=== PATIENT | female | born 1950 | race Caucasian/White ===

== ENCOUNTER 2018-01-26 19:24 | Inpatient (IN) | payer MEDICARE, BC ==
[2018-01-26] MEDS: IV NORMAL SALINE 1000ML BAG 1,000 ML IV (20:35)
[2018-01-26] MEDS: fentaNYL PF VIAL 100 MCG/2 ML VIAL IV (20:36)
[2018-01-26] MEDS: CIPROFLOXACIN 400MG PREMIX 200 ML IV (21:15)
[2018-01-27] MEDS: fentaNYL PF VIAL 100 MCG/2 ML VIAL IV ×7 (01:42→21:14)
[2018-01-27 04:57] LABS: ADD MAN DIFF? NO
[2018-01-27 05:08] LABS: BASO % 0 % (0-3); EOS % 1 % (0-3); HEMATOCRIT 31.9 % (36.0-47.0); HEMOGLOBIN 10.4 g/dL (12.0-15.5); LYMPH # 0.9 x10^3/uL (1.0-4.8); LYMPH % 12 % (24-48); MEAN CORPUSCULAR HEMOGLOBIN 27 pg (25-35); MEAN CORPUSCULAR HGB CONC 33 g/dL (31-37); MEAN CORPUSCULAR VOLUME 84 fL (79-100); MONO # 0.7 x10^3/uL (0.0-1.1); MONO % 9 % (0-9); NEUT # 5.7 x10^3uL (1.8-7.7); NEUT % 78 % (31-73); PLATELET COUNT 217 x10^3/uL (140-400); RED BLOOD COUNT 3.82 x10^6/uL (3.50-5.40); RED CELL DISTRIBUTION WIDTH 15.6 % (11.5-14.5); WHITE BLOOD COUNT 7.4 x10^3/uL (4.0-11.0)
[2018-01-27 05:10] LABS: INR 1.1 (0.8-1.1); PROTHROMBIN TIME PATIENT 13.2 SEC (11.7-14.0)
[2018-01-27 05:35] LABS: ALBUMIN 2.9 g/dL (3.4-5.0); TOTAL PROTEIN 6.7 g/dL (6.4-8.2)
[2018-01-27 05:36] LABS: ALBUMIN/GLOBULIN RATIO 0.8 (1.0-1.7); ALK PHOS 308 U/L (46-116); ALT (SGPT) 455 U/L (14-59); ANION GAP 12 (6-14); AST (SGOT) 300 U/L (15-37); BLOOD UREA NITROGEN 6 mg/dL (7-20); BUN/CREATININE RATIO 10 (6-20); CALCIUM 8.9 mg/dL (8.5-10.1); CARBON DIOXIDE 22 mmol/L (21-32); CHLORIDE 104 mmol/L (98-107); CREATININE 0.6 mg/dL (0.6-1.0); GFR 99.7; GLUCOSE 101 mg/dL (70-99); POTASSIUM 3.5 mmol/L (3.5-5.1); SODIUM 138 mmol/L (136-145); TOTAL BILIRUBIN 4.2 mg/dL (0.2-1.0)
[2018-01-27] MEDS: CIPROFLOXACIN 400MG PREMIX 200 ML IV (08:55)
[2018-01-27 09:20] LABS: LIPASE 4646 U/L (73-393)
[2018-01-27] MEDS ORDERED: fentaNYL PF VIAL 100 MCG/2 ML VIAL IV (09:45)
[2018-01-27] MEDS: MEROPENEM 500 MG in IV NORMAL SALINE 50ML 50 ML IV ×2 (14:22→22:01)
[2018-01-27 15:19] LABS: % SAT IRON 5 % (15-34); IRON,SERUM 16 ug/dL (50-170)
[2018-01-27] MEDS: IV NORMAL SALINE 1000ML BAG 1,000 ML IV (15:40)
[2018-01-28] MEDS: fentaNYL PF VIAL 100 MCG/2 ML VIAL IV ×7 (01:09→22:17)
[2018-01-28] MEDS: IV NORMAL SALINE 1000ML BAG 1,000 ML IV ×2 (04:29→11:20)
[2018-01-28] MEDS: MEROPENEM 500 MG in IV NORMAL SALINE 50ML 50 ML IV ×3 (05:55→22:16)
[2018-01-28 07:37] LABS: ANION GAP 14 (6-14); BLOOD UREA NITROGEN 6 mg/dL (7-20); BUN/CREATININE RATIO 12 (6-20); CALCIUM 9.1 mg/dL (8.5-10.1); CARBON DIOXIDE 21 mmol/L (21-32); CHLORIDE 105 mmol/L (98-107); CREATININE 0.5 mg/dL (0.6-1.0); GFR 123.1; GLUCOSE 80 mg/dL (70-99); POTASSIUM 3.5 mmol/L (3.5-5.1); SODIUM 140 mmol/L (136-145)
[2018-01-28 07:43] LABS: ALBUMIN 2.8 g/dL (3.4-5.0); ALBUMIN/GLOBULIN RATIO 0.7 (1.0-1.7); ALK PHOS 308 U/L (46-116); ALT (SGPT) 364 U/L (14-59); AST (SGOT) 204 U/L (15-37); TOTAL BILIRUBIN 4.5 mg/dL (0.2-1.0); TOTAL PROTEIN 6.8 g/dL (6.4-8.2)
[2018-01-28 07:57] LABS: LIPASE 2950 U/L (73-393)
[2018-01-28] MEDS: fentaNYL 50MCG/HR PATCH 1 PATCH PATCH.TD72 TD (08:17)
[2018-01-28 14:26] LABS: CA 19-9 1175 U/mL (0-35)
[2018-01-28 14:26] LABS: CEA 7.5 ng/mL (0.0-4.7)
[2018-01-29] MEDS: IV NORMAL SALINE 1000ML BAG 1,000 ML IV ×2 (00:30→14:40)
[2018-01-29] MEDS: fentaNYL PF VIAL 100 MCG/2 ML VIAL IV ×5 (02:11→22:33)
[2018-01-29] MEDS: MEROPENEM 500 MG in IV NORMAL SALINE 50ML 50 ML IV ×3 (05:42→23:55)
[2018-01-29] MEDS ORDERED: PROCHLORPERAZINE 10 MG/2 ML VIAL. IV (07:00)
[2018-01-29] MEDS ORDERED: HYDROmorphone 2 MG/ML VIAL IV (07:00)
[2018-01-29] MEDS ORDERED: LIDOCAINE 1% PF 2 ML VIAL. ID ×2 (07:00→09:30)
[2018-01-29] MEDS ORDERED: ONDANSETRON PF 4 MG/2 ML VIAL. IV (07:00)
[2018-01-29] MEDS ORDERED: fentaNYL PF VIAL 100 MCG/2 ML VIAL IV ×4 (07:00→09:30)
[2018-01-29] MEDS ORDERED: MORPHINE SULFATE 4 MG/ML DISP.SYRIN. IV (07:00)
[2018-01-29 09:13] LABS: ADD MAN DIFF? NO
[2018-01-29 09:19] LABS: BASO # 0.1 x10^3/uL (0.0-0.2); BASO % 1 % (0-3); EOS # 0.2 x10^3/uL (0.0-0.7); EOS % 2 % (0-3); HEMATOCRIT 33.9 % (36.0-47.0); HEMOGLOBIN 10.9 g/dL (12.0-15.5); LYMPH % 15 % (24-48); MEAN CORPUSCULAR HEMOGLOBIN 27 pg (25-35); MEAN CORPUSCULAR HGB CONC 32 g/dL (31-37); MEAN CORPUSCULAR VOLUME 83 fL (79-100); MONO # 0.7 x10^3/uL (0.0-1.1); MONO % 11 % (0-9); NEUT % 72 % (31-73); PLATELET COUNT 271 x10^3/uL (140-400); RED BLOOD COUNT 4.06 x10^6/uL (3.50-5.40)
[2018-01-29] MEDS: IV RINGERS,LACTATED 1000ML 1,000 ML IV ×3 (09:26→17:26)
[2018-01-29] MEDS ORDERED: MIDAZOLAM HCL/PF 2 MG/2 ML VIAL. IV (09:30)
[2018-01-29 09:49] LABS: ALBUMIN 2.8 g/dL (3.4-5.0); ALBUMIN/GLOBULIN RATIO 0.6 (1.0-1.7); ALK PHOS 346 U/L (46-116); ALT (SGPT) 337 U/L (14-59); ANION GAP 14 (6-14); AST (SGOT) 180 U/L (15-37); BLOOD UREA NITROGEN 8 mg/dL (7-20); BUN/CREATININE RATIO 16 (6-20); CALCIUM 9.5 mg/dL (8.5-10.1); CARBON DIOXIDE 21 mmol/L (21-32); CHLORIDE 107 mmol/L (98-107); CREATININE 0.5 mg/dL (0.6-1.0); GFR 123.1; GLUCOSE 68 mg/dL (70-99); POTASSIUM 3.6 mmol/L (3.5-5.1); SODIUM 142 mmol/L (136-145); TOTAL BILIRUBIN 5.4 mg/dL (0.2-1.0); TOTAL PROTEIN 7.3 g/dL (6.4-8.2)
[2018-01-29 09:51] LABS: LIPASE 2027 U/L (73-393)
[2018-01-29] MEDS ORDERED: SUCCINYLCHOLINE 200 MG/10 ML VIAL. (12:00)
[2018-01-29] MEDS ORDERED: PROPOFOL 10 MG/ML (20ML) VIAL. IV (12:00)
[2018-01-29] MEDS ORDERED: LIDOCAINE 2% 100 MG/5 ML SYRINGE. (12:00)
[2018-01-29] MEDS ORDERED: DEXAMETHASONE SOD PHOS 20 MG/5 ML VIAL. (12:00)
[2018-01-29] MEDS ORDERED: IOHEXOL 300 MG/ML 100ML VIAL. (13:49)
[2018-01-30 04:10] LABS: BASO % 0 % (0-3); EOS % 0 % (0-3); HEMATOCRIT 31.3 % (36.0-47.0); HEMOGLOBIN 10.4 g/dL (12.0-15.5); LYMPH # 0.4 x10^3/uL (1.0-4.8); LYMPH % 8 % (24-48); MEAN CORPUSCULAR HEMOGLOBIN 28 pg (25-35); MEAN CORPUSCULAR HGB CONC 33 g/dL (31-37); MEAN CORPUSCULAR VOLUME 83 fL (79-100); MONO # 0.2 x10^3/uL (0.0-1.1); MONO % 5 % (0-9); NEUT # 4.5 x10^3uL (1.8-7.7); NEUT % 87 % (31-73); PLATELET COUNT 287 x10^3/uL (140-400); RED BLOOD COUNT 3.76 x10^6/uL (3.50-5.40); RED CELL DISTRIBUTION WIDTH 15.7 % (11.5-14.5); WHITE BLOOD COUNT 5.2 x10^3/uL (4.0-11.0)
[2018-01-30 04:12] LABS: ADD MAN DIFF? YES
[2018-01-30 04:29] LABS: ALBUMIN 2.7 g/dL (3.4-5.0); ALBUMIN/GLOBULIN RATIO 0.6 (1.0-1.7); ALK PHOS 339 U/L (46-116); ALT (SGPT) 314 U/L (14-59); ANION GAP 15 (6-14); AST (SGOT) 174 U/L (15-37); BLOOD UREA NITROGEN 14 mg/dL (7-20); BUN/CREATININE RATIO 28 (6-20); CALCIUM 9.7 mg/dL (8.5-10.1); CARBON DIOXIDE 20 mmol/L (21-32); CHLORIDE 108 mmol/L (98-107); CREATININE 0.5 mg/dL (0.6-1.0); GFR 123.1; GLUCOSE 155 mg/dL (70-99); LIPASE 325 U/L (73-393); POTASSIUM 4.4 mmol/L (3.5-5.1); SODIUM 143 mmol/L (136-145)
[2018-01-30 05:24] LABS: % LYMPHS 7 % (24-48); % MONOS 4 % (0-10); % SEGS 89 % (35-66)
[2018-01-30 05:25] LABS: PLT ESTIMATE ADEQUATE (ADEQUATE)
[2018-01-30] MEDS: MEROPENEM 500 MG in IV NORMAL SALINE 50ML 50 ML IV ×3 (06:04→22:35)
[2018-01-30] MEDS: IV NORMAL SALINE 1000ML BAG 1,000 ML IV ×2 (07:33→12:09)
[2018-01-30] MEDS: fentaNYL PF VIAL 100 MCG/2 ML VIAL IV ×9 (07:59→20:44)
[2018-01-30] MEDS ORDERED: LIDOCAINE WITH 8.4% SOD BICARB 3 ML DISP.SYRIN. (13:52)
[2018-01-30] MEDS ORDERED: IOHEXOL 300 MG/ML 100ML VIAL. (13:52)
[2018-01-30] MEDS ORDERED: CONTRAST GIVEN MC (14:00)
[2018-01-30] MEDS ORDERED: MIDAZOLAM HCL/PF 2 MG/2 ML VIAL. ×3 (14:07→15:09)
[2018-01-30] MEDS ORDERED: fentaNYL PF VIAL 100 MCG/2 ML VIAL ×3 (14:08→17:11)
[2018-01-30] MEDS: IOHEXOL 300 MG/ML 100ML VIAL. IV (14:14)
[2018-01-30] MEDS ORDERED: LIDOCAINE 2% 20 ML VIAL. (14:54)
[2018-01-30] MEDS ORDERED: diphenhydrAMINE 50 MG/ML VIAL (15:05)
[2018-01-30] MEDS ORDERED: LABETALOL 20 MG/4 ML DISP.SYRIN. (15:13)
[2018-01-30] MEDS ORDERED: KETAMINE HCL 500 MG/10 ML VIAL. (15:33)
[2018-01-30] MEDS: LIDOCAINE 2% 20 ML VIAL. IJ (16:12)
[2018-01-30] MEDS: IOHEXOL 300 MG/ML 100ML VIAL. IART (16:12)
[2018-01-30] MEDS: LIDOCAINE WITH 8.4% SOD BICARB 3 ML DISP.SYRIN. IJ (16:13)
[2018-01-30] MEDS: MIDAZOLAM HCL/PF 2 MG/2 ML VIAL. IV (16:15)
[2018-01-30] MEDS: LABETALOL 20 MG/4 ML DISP.SYRIN. IVP (16:19)
[2018-01-30] MEDS: diphenhydrAMINE 50 MG/ML VIAL IVP (16:19)
[2018-01-30] MEDS ORDERED: PROPOFOL 40 ML IV (16:38)
[2018-01-30] MEDS ORDERED: LIDOCAINE 1% PF 2 ML VIAL. ID (16:45)
[2018-01-30] MEDS ORDERED: ONDANSETRON PF 4 MG/2 ML VIAL. IV (16:45)
[2018-01-30] MEDS ORDERED: fentaNYL PF VIAL 100 MCG/2 ML VIAL IV (16:45)
[2018-01-30] MEDS ORDERED: PROCHLORPERAZINE 10 MG/2 ML VIAL. IV (16:45)
[2018-01-30] MEDS ORDERED: MORPHINE SULFATE 2 MG/ML DISP.SYRIN. IV (16:45)
[2018-01-30] MEDS ORDERED: hydrALAZINE 20 MG/ML VIAL. (16:55)
[2018-01-30] MEDS: hydrALAZINE 20 MG/ML VIAL. IVP (17:00)
[2018-01-30] MEDS: IV RINGERS,LACTATED 1000ML 1,000 ML IV (17:40)
[2018-01-30] MEDS: MORPHINE SULFATE 4 MG/ML DISP.SYRIN. IV ×2 (18:21→22:35)
[2018-01-30] MEDS: LACTOBACILLUS RHAMNOSUS GG 1 CAPSULE. PO (20:44)
[2018-01-30 22:09] LABS: HEMATOCRIT 31.7 % (36.0-47.0); HEMOGLOBIN 10.4 g/dL (12.0-15.5); MEAN CORPUSCULAR HEMOGLOBIN 27 pg (25-35); MEAN CORPUSCULAR HGB CONC 33 g/dL (31-37); MEAN CORPUSCULAR VOLUME 82 fL (79-100); PLATELET COUNT 325 x10^3/uL (140-400); RED BLOOD COUNT 3.87 x10^6/uL (3.50-5.40); RED CELL DISTRIBUTION WIDTH 16.2 % (11.5-14.5); WHITE BLOOD COUNT 12.9 x10^3/uL (4.0-11.0)
[2018-01-31] MEDS: fentaNYL PF VIAL 100 MCG/2 ML VIAL IV ×5 (00:50→20:20)
[2018-01-31] MEDS: MORPHINE SULFATE 4 MG/ML DISP.SYRIN. IV ×4 (02:48→18:29)
[2018-01-31] MEDS: MEROPENEM 500 MG in IV NORMAL SALINE 50ML 50 ML IV (05:59)
[2018-01-31 06:03] LABS: HEMATOCRIT 34.5 % (36.0-47.0); HEMOGLOBIN 11.2 g/dL (12.0-15.5); MEAN CORPUSCULAR HEMOGLOBIN 27 pg (25-35); MEAN CORPUSCULAR HGB CONC 32 g/dL (31-37); MEAN CORPUSCULAR VOLUME 83 fL (79-100); PLATELET COUNT 361 x10^3/uL (140-400); RED BLOOD COUNT 4.17 x10^6/uL (3.50-5.40)
[2018-01-31 06:36] LABS: ALBUMIN 3.1 g/dL (3.4-5.0); ALBUMIN/GLOBULIN RATIO 0.7 (1.0-1.7); ALK PHOS 387 U/L (46-116); ALT (SGPT) 340 U/L (14-59); ANION GAP 14 (6-14); AST (SGOT) 193 U/L (15-37); BLOOD UREA NITROGEN 18 mg/dL (7-20); BUN/CREATININE RATIO 26 (6-20); CALCIUM 9.3 mg/dL (8.5-10.1); CARBON DIOXIDE 24 mmol/L (21-32); CHLORIDE 107 mmol/L (98-107); CREATININE 0.7 mg/dL (0.6-1.0); GFR 83.5; GLUCOSE 126 mg/dL (70-99); SODIUM 145 mmol/L (136-145); TOTAL BILIRUBIN 3.5 mg/dL (0.2-1.0); TOTAL PROTEIN 7.5 g/dL (6.4-8.2)
[2018-01-31 07:04] LABS: INR 1.1 (0.8-1.1); PROTHROMBIN TIME PATIENT 13.2 SEC (11.7-14.0)
[2018-01-31] MEDS: LACTOBACILLUS RHAMNOSUS GG 1 CAPSULE. PO ×2 (09:14→20:19)
[2018-01-31] MEDS: fentaNYL 50MCG/HR PATCH 1 PATCH PATCH.TD72 TD (09:15)
[2018-01-31] MEDS: POTASSIUM CL 40MEQ D5-0.45NACL 1,000 ML IV ×2 (09:16→22:20)
[2018-01-31] MEDS: ONDANSETRON PF 4 MG/2 ML VIAL. IV (13:07)
[2018-01-31 14:09] LABS: HEMATOCRIT 29.7 % (36.0-47.0); HEMOGLOBIN 9.9 g/dL (12.0-15.5); MEAN CORPUSCULAR HEMOGLOBIN 28 pg (25-35); MEAN CORPUSCULAR HGB CONC 34 g/dL (31-37); MEAN CORPUSCULAR VOLUME 83 fL (79-100); PLATELET COUNT 287 x10^3/uL (140-400); RED BLOOD COUNT 3.56 x10^6/uL (3.50-5.40); RED CELL DISTRIBUTION WIDTH 16.3 % (11.5-14.5); WHITE BLOOD COUNT 9.5 x10^3/uL (4.0-11.0)
[2018-01-31] MEDS: IV NORMAL SALINE 1000ML BAG 1,000 ML IV (20:00)
[2018-02-01] MEDS: fentaNYL PF VIAL 100 MCG/2 ML VIAL IV ×3 (04:54→12:01)
[2018-02-01 05:33] LABS: HEMATOCRIT 30.6 % (36.0-47.0); HEMOGLOBIN 10.1 g/dL (12.0-15.5); MEAN CORPUSCULAR HEMOGLOBIN 27 pg (25-35); MEAN CORPUSCULAR HGB CONC 33 g/dL (31-37); MEAN CORPUSCULAR VOLUME 82 fL (79-100); PLATELET COUNT 318 x10^3/uL (140-400); RED BLOOD COUNT 3.72 x10^6/uL (3.50-5.40); RED CELL DISTRIBUTION WIDTH 15.9 % (11.5-14.5)
[2018-02-01 05:59] LABS: ALBUMIN 2.8 g/dL (3.4-5.0); ALBUMIN/GLOBULIN RATIO 0.7 (1.0-1.7); ALK PHOS 307 U/L (46-116); ALT (SGPT) 252 U/L (14-59); ANION GAP 9 (6-14); AST (SGOT) 111 U/L (15-37); BLOOD UREA NITROGEN 10 mg/dL (7-20); BUN/CREATININE RATIO 17 (6-20); CALCIUM 9.3 mg/dL (8.5-10.1); CARBON DIOXIDE 26 mmol/L (21-32); CHLORIDE 103 mmol/L (98-107); CREATININE 0.6 mg/dL (0.6-1.0); GFR 99.7; GLUCOSE 144 mg/dL (70-99); LIPASE 633 U/L (73-393); POTASSIUM 3.3 mmol/L (3.5-5.1); SODIUM 138 mmol/L (136-145); TOTAL BILIRUBIN 2.6 mg/dL (0.2-1.0); TOTAL PROTEIN 6.9 g/dL (6.4-8.2)
[2018-02-01] MEDS: MORPHINE SULFATE 4 MG/ML DISP.SYRIN. IV ×2 (06:29→10:16)
[2018-02-01] MEDS: LACTOBACILLUS RHAMNOSUS GG 1 CAPSULE. PO (10:15)
[2018-02-01] MEDS: POTASSIUM CL 40MEQ D5-0.45NACL 1,000 ML IV (11:40)
[2018-02-01] MEDS: oxyCODONE/APAP 10/325 1 TAB TABLET PO (13:34)
== END 2018-02-01 14:15 | disposition short-term general hospital (02) | DRG 871 ==
LOC: 4 NORTH 19:24
PROC: 0DJ08ZZ Inspection of Upper Intestinal Tract, Via Natural or Artificial Opening Endoscopic (ICD-10-PCS; principal; 2018-01-29 14:15)
PROC: BF101ZZ Fluoroscopy of Bile Ducts using Low Osmolar Contrast (ICD-10-PCS; 2018-01-29 14:15)
PROC: 0F9930Z Drainage of Common Bile Duct with Drainage Device, Percutaneous Approach (ICD-10-PCS; 2018-01-29 14:15)
DX: A41.9 Sepsis, unspecified organism (principal); K83.1 Obstruction of bile duct; K83.0 Cholangitis; C25.3 Malignant neoplasm of pancreatic duct; K31.5 Obstruction of duodenum; I50.9 Heart failure, unspecified; I11.0 Hypertensive heart disease with heart failure; G62.9 Polyneuropathy, unspecified; D50.9 Iron deficiency anemia, unspecified; E03.9 Hypothyroidism, unspecified; E78.5 Hyperlipidemia, unspecified; M19.90 Unspecified osteoarthritis, unspecified site; J45.909 Unspecified asthma, uncomplicated; M79.7 Fibromyalgia; G47.33 Obstructive sleep apnea (adult) (pediatric); I25.10 Atherosclerotic heart disease of native coronary artery without angina pectoris; F41.9 Anxiety disorder, unspecified; F32.9 Major depressive disorder, single episode, unspecified; K57.30 Diverticulosis of large intestine without perforation or abscess without bleeding; K21.9 Gastro-esophageal reflux disease without esophagitis; E66.9 Obesity, unspecified; E87.6 Hypokalemia; K44.9 Diaphragmatic hernia without obstruction or gangrene; K81.9 Cholecystitis, unspecified; K83.8 Other specified diseases of biliary tract; Z96.641 Presence of right artificial hip joint; Z88.0 Allergy status to penicillin; Z90.89 Acquired absence of other organs; Z90.49 Acquired absence of other specified parts of digestive tract; Z88.6 Allergy status to analgesic agent; Z88.2 Allergy status to sulfonamides; Z88.8 Allergy status to other drugs, medicaments and biological substances; Z79.899 Other long term (current) drug therapy; Z82.49 Family history of ischemic heart disease and other diseases of the circulatory system; Z87.440 Personal history of urinary (tract) infections; Z68.32 Body mass index [BMI] 32.0-32.9, adult; Z87.11 Personal history of peptic ulcer disease
CPT/HCPCS: 36415; 47532; 47534; 74177; 74181; 80053; 82378; 83540; 83550; 83690; 85007; 85025; 85027; 85610; 86301; 99152; 99153; C1713; C1729; C1769; C1892; J0330; J0360; J0744; J1100; J1200; J2185; J2250; J2270; J2405; J2704; J3010; J3490; J7030; J7042; J7120; Q9967